=== PATIENT | female | born 1990 | race Caucasian/White ===

== ENCOUNTER 2019-03-24 09:22 | Day surgery (SDC) | payer MEDICAID ==
[~2019-03-24] VITALS: Ht 172.7 cm; Wt 93.5 kg
[2019-03-24] VITALS (11 sets, daily range): BP systolic 112–128; BP diastolic 54–78; PULSE 74–104; TEMP 98–99.1
[2019-03-24 11:00] LABS: BASO % 0.2 % (0.0-2.0); EOS # 0.3 (0.0-0.7); EOS % 2.8 % (0-4.0); GRAN # 5.3 (1.4-6.5); GRAN % 56.8 % (42.2-75.2); LYMPH # 3.2 (1.2-3.4); LYMPH % 34.7 % (20.0-51.0); MEAN CELL VOLUME 87 fl (80.0-100.0); MEAN CORPUSCULAR HEMOGLOBIN 29 pg (27.0-31.0); MEAN CORPUSCULAR HGB CONC 33 g/dl (33.0-37.0); MEAN PLATELET VOLUME 10.3 fl (7.4-10.4); MONO # 0.5 (0.1-0.6); PLATELET COUNT 294 K/mm3 (130-400); RED BLOOD COUNT 4.84 M/mm3 (4.10-5.30)
[2019-03-24 11:08] LABS: ALBUMIN 4.6 gm/dL (3.5-5.0); CALCIUM 9.8 mg/dL (8.4-10.2); CREATININE, serum 0.65 (0.52-1.25); PHOSPHOROUS 3.7 mg/dL (2.5-4.5); POTASSIUM 4.1 mmol/L (3.4-5.0)
[2019-03-24] MEDS ORDERED: TYLENOL 325MG325 MG PO (11:15)
[2019-03-24 15:57] LABS: BASO % 0.2 % (0.0-2.0); EOS % 0.2 % (0-4.0); GRAN # 8.9 (1.4-6.5); GRAN % 81.2 % (42.2-75.2); HEMATOCRIT 40.3 % (37.0-47.0); HEMOGLOBIN 13.1 g/dl (12.5-16.0); LYMPH # 1.8 (1.2-3.4); LYMPH % 16.7 % (20.0-51.0); MEAN CELL VOLUME 89 fl (80.0-100.0); MEAN CORPUSCULAR HEMOGLOBIN 29 pg (27.0-31.0); MEAN CORPUSCULAR HGB CONC 33 g/dl (33.0-37.0); MEAN PLATELET VOLUME 10.3 fl (7.4-10.4); MONO # 0.1 (0.1-0.6); PLATELET COUNT 271 K/mm3 (130-400); RED BLOOD COUNT 4.55 M/mm3 (4.10-5.30); REDCELL DISTRIBUTION WIDTH-CV 14.2 % (11.5-14.5)
[2019-03-24 16:07] LABS: CALCIUM 9.1 mg/dL (8.4-10.2); CREATININE, serum 0.85 (0.52-1.25); POTASSIUM 4.2 mmol/L (3.4-5.0)
--- NOTE | 2019-03-24 16:30 | NUR ---
Late Entry: Patient is back from surgery. She stated having pain and tightness to her neck. She got a dose of fentanyl before arriving to floor. Explained she will need to eat something and than we can give motrin for pain. She verbalized understanding. She has some bruising to her neck incision, no drainage. Denies nausea. Family at bedside. She keeps asking for her baby, explained that her family took her baby home. Oriented patient to room. No other changes at this time. Call light within reach.
--- NOTE | 2019-03-24 19:00 | NUR ---
Late Entry: Patient is doing well. She has been up to the bathroom. She ate some food her family brought her. Explained to start slow with eating in case she gets sick. No complaints of shortness of breath. She is swallowing without difficulties. She stated she is a little sore when swallowing but doesn't feel like she has swelling or can't swallow. No other changes at this time. Her pain is better, did not want anything for pain at this time. Call light within reach.
--- NOTE | 2019-03-24 19:50 | NUR ---
Patient taken by wheelchair to private vehicle. Mother taking patient home.
--- NOTE | 2019-03-24 21:55 | NUR ---
Patient report received from BHARATH Kimble at bedside during shift change. Upon assessment at this time patient is resting in bed with at bedside. Patient reports pain to neck at 8/10, prn dilaudid given as well as prn motrin. Patient denies N/V. Tolerating eating and drink well. Patient reports voiding fine, but does state she feels like she may have a UTI, reports that these symptoms are new since admission. Urine is yellow and slightly cloudy. No other needs reported at this time.
--- NOTE | 2019-03-24 22:09 | NUR ---
Dr. Troy monkey trainer for [facility]. called. Obtained order for UA and clarified that calcium rechecks do not need to be ordered for patient.
[2019-03-25 02:50] LABS: COLLECTION METHOD CLEAN CATCH
[2019-03-25 02:56] LABS: MUCOUS Present /lpf; PH 6 (5-8); SQUAMOUS EPITHELIAL 0-2 /hpf; URINE APPEARANCE Clear; URINE BACTERIA None Seen /hpf; URINE BILIRUBIN Negative (NEGATIVE); URINE BLOOD Negative (NEGATIVE); URINE COLOR Yellow; URINE GLUCOSE 3+ (NEGATIVE); URINE KETONE Negative (NEGATIVE); URINE LEUKOCYTE ESTERASE Negative (NEGATIVE); URINE NITRATE Negative (NEGATIVE); URINE PROTEIN(semi-quant) Negative (NEGATIVE); URINE RBC 0-2 /hpf; URINE UROBILINOGEN Negative (NEGATIVE); URINE WBC 0-2 /hpf
[2019-03-25 05:28] VITALS: BP 108/59; PULSE 83; TEMP 98.1
--- NOTE | 2019-03-25 07:00 | NUR ---
Patient report given to BHARATH Durant at bedside. Patient resting comfortably, no needs observed.
--- NOTE | 2019-03-25 07:50 | NUR ---
Patient in bed resting. Alert and oriented x 3. Shift assessment completed. Spouse in room. Incision to neck with edges well approximated. Patient states mild pain will call when she feels like she needs something for pain. Denies further needs at this time.
[2019-03-25] MEDS ORDERED: MOTRIN 600600 MG/TAB PO (09:01)
[2019-03-25] MEDS ORDERED: PERCOCET 325 MG1 TA2 PO (09:01)
[2019-03-25 09:10] VITALS: BP 119/70; PULSE 94; TEMP 99
--- NOTE | 2019-03-25 09:50 | NUR ---
Discharge instructions provided to patient. Educated on signs and symptoms of infection. Patient educated on keeping follow up appointment. Verbalizes understanding. All questions answered. Patient ambulated out with surgical staff and spouse.
--- NOTE | 2019-03-25 11:28 | NUR ---
Initial visit; Patient thanked Production Control Analyst for introducing herself and offering encouragement and God's blessings.
== END 2019-03-25 09:50 | disposition home or self-care (01) ==
LOC: SDCO 09:22 → SURG 16:04 → SDCO 03-25 09:50
PROVIDERS: Surgery
DX: D34 Benign neoplasm of thyroid gland (principal); K21.9 Gastro-esophageal reflux disease without esophagitis; F17.210 Nicotine dependence, cigarettes, uncomplicated; Z82.49 Family history of ischemic heart disease and other diseases of the circulatory system; Z83.49 Family history of other endocrine, nutritional and metabolic diseases; Z88.0 Allergy status to penicillin; Z88.2 Allergy status to sulfonamides; Z88.5 Allergy status to narcotic agent
CPT/HCPCS: OP; J0330; J0690; J1100; J1170; J1885; J2405; J2704; J2765; J3010; J7120